=== PATIENT | male | born 1990 | race Caucasian/White ===

== ENCOUNTER 2019-02-12 16:48 | Emergency (ER) | payer OTHER ==
[~2019-02-12] VITALS: Ht 167.6 cm; Wt 59.0 kg
[2019-02-12 16:51] VITALS: Ht 167.6 cm; Wt 59.0 kg
[2019-02-12 21:44] VITALS: BP 148/98
== END 2019-02-12 21:44 | disposition home or self-care (01) ==
LOC: ED 16:48
DX: S61.012A Laceration without foreign body of left thumb without damage to nail, initial encounter (principal); X58.XXXA Exposure to other specified factors, initial encounter; Y93.89 Activity, other specified; Y92.89 Other specified places as the place of occurrence of the external cause; Y99.8 Other external cause status